=== PATIENT | female | born 1995 ===

== ENCOUNTER 2019-07-12 16:19 | Inpatient (IN) | payer MEDICAID ==
[~2019-07-12] VITALS: Ht 160 cm; Wt 63.5 kg
[2019-07-12] MEDS ORDERED: diphenhydrAMINE 25mg capsule PO PRN (21:30)
[2019-07-12] MEDS ORDERED: haloperidol 5mg tablet PO PRN (21:30)
[2019-07-12] MEDS ORDERED: traZODone 50mg tablet PO PRN (21:30)
[2019-07-12] MEDS ORDERED: LORazepam 1 MG tablet PO PRN (21:30)
[2019-07-12] MEDS ORDERED: acetaminophen 325mg tablet PO PRN ×2 (21:30)
[2019-07-12] MEDS ORDERED: mag hydrox/Alum hydrox/simeth 30ml oral suspension PO PRN (21:50)
[2019-07-12] MEDS ORDERED: LORazepam 0.5 MG tablet PO PRN (21:50)
[2019-07-12] MEDS ORDERED: magnesium hydroxide 30ml (MOM) UD suspension PO PRN (21:50)
--- NOTE | 2019-07-12 22:45 | NUR ---
Admit Note: Pt arrived on floor at 2124. Accompanied by desk sergeant and Ta scott. Changed into hospital scrubs 2 RN skin check complete. Bottoms of both feet red several blisters covered by band aids. Pt came from [facility] she was brought to [facility] by police. She was siting by the side of the road near traffic at a busy intersection She told police that voices told her to sit there. After talking to the pt for an hour they were unable to convince her to move so they brought her to the ER on a 5150 for danger to self. Pt is a very poor historian not clear if she is refusing to answer or is unable to answer. pleasant and cooperative.
[2019-07-13 07:52] LABS: CHOLESTEROL 94 MG/DL (0-200); HDL CHOLESTEROL 46 MG/DL (35-60); LDL CHOLESTEROL 40 MG/DL (50-100); TRIGLYCERIDES 34 MG/DL (20-135)
[2019-07-13 08:32] LABS: HEMOGLOBIN A1C 4.3 % (4.5-6.2)
[2019-07-13] MEDS: LORazepam 1 MG tablet PO SCH (18:19)
--- NOTE | 2019-07-13 18:44 | NUR ---
Nursing Progress Note Legal hold: 5150 Client on involuntary status for DTS/GD Report received from nurse, SABRINA Herrera with use of SBAR Why they are here: P after that received multiple calls that a female was seated on a busy hwy intersection on the inside of a curve, with her back to the oncoming traffic. Patient refused to move and stated that a voice told her to sit there. The police officers talked with her for 60 minutes. She said the voice did not permit her to move. Assessment What has happened this shift: Pt isolated in her room. She refused all three meals and drank only when prompted to drink. At 1700 she was lying on her bed in a near catatonic state. She appeared stiff. Per consult with BOOGIE Banks pt was given Ativan 2mg PO. Pt provided education and slightly opened her lips and teeth and took the medicine. S/I, H/I: Unk A/VH: Appears to be RIS Sleep: She did not sleep ADL's: clean green scrubs Group attendance: N/A Were meds taken: PRN Any med S/E: N/A Mental Status Exam Appearance: Green [facility] scrubs Eye contact: Poor Behavior: Poverty of speech Speech: Does not engage in conversation Mood: Depressed Affect: Flat Thought process: paranoid Thought Content: unk Cognition: Alert Insight: Poor Judgment: Unk Interventions PRN's used: Ativan 2mg Therapeutic interventions: Encouraged and prompted pt to eat and drink; provided therapeutic communication, assisted pt in sitting up; consulted with BOOGIE, q15min safety checks Restraints/seclusion/emergency medication: N/A Justification of Continued Inpatient Treatment: Patient is unable to formulate a realistic plan for food, care home or clothing at this time.
[2019-07-13 20:28] VITALS: BP 108/70
[2019-07-13] MEDS ORDERED: LORazepam 1 MG tablet PO SCH ×2 (21:00)
--- NOTE | 2019-07-14 00:06 | NUR ---
Nursing Progress Note Legal hold: 5150 Client on involuntary status for DTS/GD Report received from nurse, SABRINA Duffy with use of SBAR Why they are here: CHP after that received multiple calls that a female was seated on a busy hwy intersection on the inside of a curve, with her back to the oncoming traffic. Patient refused to move and stated that a voice told her to sit there. The police officers talked with her for 60 minutes. She said the voice did not permit her to move. Assessment What has happened this shift: Pt was sitting in her bed. When approached by this RN pt appeared to be alert, states that she had something in her mouth and wanted to spit it out. After that pt would not engage or respond to any of the questions being asked. While checking on pt, she had been eating part of her dinner and she was a little more responsive. Asked how she was doing and states Im good. Pt was observed responding to internal stimuli. She was observed a couple times talking to herself, and laughing pretty loudly. Denies any A/VH but when asked who she was talking to she states Jehovah. She also denies any depression or anxiety. Pt is much more alert and cooperative at this time. She was up in the unit and requested a snack a couple of times, and also asking questions to staff about the unit. Offered pt medication to aid with sleep but she refused. Will continue to monitor. S/I, H/I: Denies A/VH: Denies but appears to be responding to internal stimuli Sleep: Pt had trouble falling asleep, See sleep assessment for total hours ADL's: Independent Group attendance: N/A Were meds taken: No Any med S/E: N/A Mental Status Exam Appearance: Green hospital scrubs, hair is dishevelled Eye contact: Poor Behavior: Cooperative, appears paranoid Speech: Normal rate and rhythm, volume is elevated Mood: "I'm good." Affect: Euthymic Thought process: Constricted Thought Content: Snacks, having multiple conversations with unknown people Cognition: Alert and oriented X3 Insight: Poor Judgment: Poor Interventions PRN's used: None Therapeutic interventions: Encouraged and prompted pt to eat and drink; provided therapeutic communication, assisted pt in sitting up; consulted with PA, q15min safety checks Restraints/seclusion/emergency medication: N/A Justification of Continued Inpatient Treatment: Patient is unable to formulate a realistic plan for food, mcc or clothing at this time.
[2019-07-14] MEDS: LORazepam 1 MG tablet PO SCH ×3 (07:32→20:29)
[2019-07-14 08:00] VITALS: BP 106/65
--- NOTE | 2019-07-14 08:44 | NUR ---
PSYCHOSOCIAL ASSESSMENT Met with Verito to complete psychosocial assessment on 07/13/19. Verito is a 24 y/o single female who was placed on 5150 by police due to sitting on the side of a busy road and reported that voices told her to. She reported she had hitch hiked and walked from [place] to [facility] where she was located by police, "I wanted to get away". Verito was slow to respond to questions and appeared to be attending to internal stimuli. She reported she does hear voices that are command in nature. She denied any suicidal or homicidal ideation, intention, or plan. She denied any history of suicide attempts. She reported she has been diagnosed with Schizophrenia. She reported a history of hospitalizations, however, could not recall when and where she was hospitalized. Her memory was poor. She appeared sunburned and weathered with long hair. She maintained decent eye contact.She was cooperative with typewriter ribbon winder and answered questions. She was oriented to person, place, and time. She was vague on why she was hitchhiking and walking from [place], other than stating, "I was walking, trying to get away from the area" She also mentioned she believes in [employer] and that she recently has started studying [employer]. Verito reported she typically resides with her mom, Margot Perla, in [place]. She reported she does not currently work or have any source of income. She notes she spent a little time at [facility] a couple years ago. She reported she would like to return to her mother's home, however, she does not know her phone number. She has [facility] currently. She reported she has not been taking any medications or connected with a mental health provider. CRAIG Brand Addendum: 07/14/19 at 0846 by Nallely SCHWARZ Amended: Links added. Addendum: 07/14/19 at 0857 by Nallely Corona SS Verito gomez [facility], not [facility] Head
--- NOTE | 2019-07-14 11:43 | NUR ---
Nursing Progress Note Legal hold: 5150 Client on involuntary status for DTS/GD Report received from nurse, SABRINA Herrera with use of SBAR Why they are here: P after that received multiple calls that a female was seated on a busy hwy intersection on the inside of a curve, with her back to the oncoming traffic. Patient refused to move and stated that a voice told her to sit there. The police officers talked with her for 60 minutes. She said the voice did not permit her to move. Assessment What has happened this shift: Patient was sitting at edge of bed at change of shift. She took a shower and changed in to clean scrubs. She is pleasant and cooperative with care and takes her medications as ordered and directed. She eats her meals in her room. She mostly isolates in the morning and asks for some band aids for her feet. She denies SI, HI, A/VH. S/I, H/I: denies A/VH: denies, but appears to be responding to internal stimuli Sleep: up the majority of the shift ADL's: clean green scrubs, hair is washed and brushed loose on her back Group attendance: N/A Were meds taken: yes Any med S/E: N/A Mental Status Exam Appearance: Green hospital scrubs, freshly showered Eye contact: Poor Behavior: guarded Speech: minimal Mood: Depressed Affect: Flat Thought process: paranoid Thought Content: unknown Cognition: Alert Insight: Poor Judgment: poor Interventions PRN's used: none Therapeutic interventions: Encouraged and prompted pt to eat and drink; provided therapeutic communication, assisted pt in sitting up; consulted with BOOGIE, q15min safety checks Restraints/seclusion/emergency medication: N/A Justification of Continued Inpatient Treatment: Patient is unable to formulate a realistic plan for food, detention or clothing at this time.
--- NOTE | 2019-07-14 12:30 | NUR ---
SABRINA assumed care of patient Addendum: 07/14/19 at 1543 by Hank Bello RN Pt. was social in the afternoon, overheard talking with other patients in a loud voice. Addendum: 07/14/19 at 1730 by Hank Bello RN Pt. went outside with other patients and initiated ball throwing game. Pt. appears to be in a jovial mood.
[2019-07-14 19:47] VITALS: BP 108/56
[2019-07-14] MEDS: OLANZAPINE 5 MG TABLET PO SCH (20:30)
--- NOTE | 2019-07-14 23:42 | NUR ---
Nursing Progress Note: Legal hold: 5150 for GD (HOLD ENDS 07/14 @ 7666) Client on involuntary status for DTS/GD Report received from nurse, SABRINA Duffy with use of SBAR Why they are here: CHP after that received multiple calls that a female was seated on a busy hwy intersection on the inside of a curve, with her back to the oncoming traffic. Patient refused to move and stated that a voice told her to sit there. The police officers talked with her for 60 minutes. She said the voice did not permit her to move. Assessment What has happened this shift: Pt sleeping at change of shift, but easily roused. Isolated to room entire shift, but did enjoy a snack. Pt endorses depression "it goes up and down, and right now it feels low" and +AH "it is like background noise currently, but usually it tells me to do things." Pt would not elaborate on commands voices give her. Pt states she has good support from her mother, but no other friends she can count on. She states she doesn't want a job but is "feeling better" and just needing to "catch up on sleep". Pt is cooperative and pleasant during assessment but seems somewhat guarded aeb by frequent shrugging, laughing off responses, and shifting eye contact. Pt unable to state exactly why she ended up in [place] but admits to having been hospitalized for her mental health in the past. "I don't know what caused this problem now." Pt compliant with HS medications and went to sleep shortly after administration. S/I, H/I: Denies both A/VH: +AH "background noise"; Denies VH Sleep: See Sleep Assessment ADL's: Independent Group attendance: N/A Were meds taken: yes Any med S/E: N/A Mental Status Exam Appearance: Clean in green unit scrubs, nonskid socks, with hair in ponytail. Pt appears slightly sunburned. Eye contact: Intermittent Behavior: Guarded, Cooperative, Isolated to room Speech: Clear Mood: "Better", Depression "low" Affect: Blunted with brightening Thought process: Linear Thought Content: wanting to catch up on sleep Cognition: A&Ox3 (off for circumstance) Insight: Poor Judgment: poor Interventions PRN's used: None Therapeutic interventions: Encouraged and prompted pt to eat and drink at snack; provided therapeutic communication, q15min safety checks, medication administration Restraints/seclusion/emergency medication: N/A Justification of Continued Inpatient Treatment: Patient is unable to formulate a realistic plan for food, correction or clothing at this time Cooperative with care but doesn't know why she was admitted; seems to lack insight into her mental health.
[2019-07-15] MEDS: LORazepam 1 MG tablet PO SCH ×3 (08:16→20:52)
[2019-07-15 08:26] VITALS: BP 103/73
--- NOTE | 2019-07-15 15:52 | NUR ---
DISCHARGE PLANNING Verito reported she would like to return to her mother's home in [place]. She reported she would sign voluntary for one night to wait for transportation. Arranged for transportation through [employer]. Transportation will pick Verito up at noon tomorrow. Attempted to arrange follow up appt and Verito has to call herself to re-start services. Provided her with the phone number and asked her to call. Later she reported she called and someone is going to call her back to complete a pre-screening. CRAIG Brand
--- NOTE | 2019-07-15 16:41 | NUR ---
Nursing Progress Note: Legal hold: 5150 for GD (HOLD ENDS 07/14 @ 5555) Client on involuntary status for DTS/GD Report received from nurse, Araceli RN with use of SBAR Why they are here: CHP received multiple calls that a female was seated on a busy hwy intersection on the inside of a curve, with her back to the oncoming traffic. Patient refused to move and stated that the voice of "Sadiq" told her to sit there. The police officers talked with her for 60 minutes. She said the voice did not permit her to move. Assessment What has happened this shift: Pt sleeping at change of shift, but easily roused. walked around the unit several times today and did enjoy a snack. Pt states depression "it goes up and down, and right now it feels low" and +AH "it is like background noise currently, but usually it tells me to do things." Pt would not elaborate on commands voices give her. Pt states she has good support from her mother, but no other friends she can count on. She states she doesn't want a job but is "feeling better" and just needing to "catch up on sleep". Pt is cooperative and pleasant during assessment but seems somewhat guarded, evidenced by shifting eye contact and quick responses to questions. Pt unable to state exactly why she ended up in [place] but admits to having been hospitalized for her mental health in the past. "I don't know what caused this problem now." Pt compliant with medications. S/I, H/I: Denies both A/VH: +AH "background noise"; Denies VH Sleep: See Sleep Assessment ADL's: Independent Group attendance: N/A Were meds taken: yes Any med S/E: N/A Mental Status Exam Appearance: Clean in green unit scrubs, nonskid socks, with hair in ponytail. Pt appears slightly sunburned. Eye contact: Intermittent Behavior: Guarded, Cooperative Speech: Clear Mood: "Better" Affect: Blunted with brightening Thought process: Linear Thought Content: wanting to catch up on sleep Cognition: A&Ox3 Insight: Poor Judgment: poor Interventions PRN's used: None Therapeutic interventions: Encouraged and prompted pt to eat and drink at snack; provided therapeutic communication, q15min safety checks, medication administration Restraints/seclusion/emergency medication: N/A Justification of Continued Inpatient Treatment: Patient is unable to formulate a realistic plan for food, group home or clothing at this time Cooperative with care but doesn't know why she was admitted; seems to lack insight into her mental health.
[2019-07-15 20:00] VITALS: BP 106/57
[2019-07-15] MEDS: OLANZAPINE 5 MG TABLET PO SCH (20:52)
--- NOTE | 2019-07-15 22:44 | NUR ---
Nursing Progress Note: Legal hold: Voluntary for GD/DTS Report received from SABRINA Buckner with use of SBAR Why they are here: CHP after that received multiple calls that a female was seated on a busy hwy intersection on the inside of a curve, with her back to the oncoming traffic. Patient refused to move and stated that a voice told her to sit there. The police officers talked with her for 60 minutes. She said the voice did not permit her to move. Assessment What has happened this shift: Pt watching TV majority of shift in the group room, and denied all signs and symptoms except +AH which "is much better, they are quieter now. I think I'll be okay." Pt states she is leaving tomorrow but unsure where she is going, this RN update pt on discharge plan and asked if she'd like to call her mother. Pt stated "Yeah, I could try a couple numbers to give her a heads up." Pt successful in making contact and informed her mother that she would be leaving at noon per the plan set up via [facility]. RN reinforced how much better pt is doing since taking her medications, and pt agreed stating "Yeah. Much better." Encouraged to maintain medications upon discharge and pt stated, "Yeah, I think I can." Pt attended snack and interacted with a couple peers, speaking very loudly. She attended snack, was compliant with medications and read a book before turning retiring to bed. S/I, H/I: Denies both A/VH: +AH "quieter"; Denies VH Sleep: See Sleep Assessment ADL's: Independent Group attendance: N/A Were meds taken: Yes Any med S/E: None reported nor observed Mental Status Exam Appearance: Clean in green unit scrubs, nonskid socks, with hair in ponytail. Pt appears slightly sunburned. Eye contact: Good Behavior: Cooperative, Reading, watching TV, talked to mother, engaging with a couple peers Speech: Clear, loud Mood: "Much better" Affect: Blunted with brightening Thought process: Linear Thought Content: looking forward to being discharged, staying on medications Cognition: A&Ox4 Insight: Fair Judgment: Fair Interventions PRN's used: None Therapeutic interventions: Encouraged and prompted pt to eat and drink at snack; provided therapeutic communication, q15min safety checks, medication administration Restraints/seclusion/emergency medication: N/A Justification of Continued Inpatient Treatment: Pt to be discharged to her mother's home in [place] in the afternoon, transportation arranged by [facility].
[2019-07-16 07:15] VITALS: BP 117/75
[2019-07-16] MEDS: LORazepam 1 MG tablet PO SCH ×2 (08:00→08:14)
[2019-07-16] MEDS ORDERED: OLAN5TAB26 PO (10:41)
--- NOTE | 2019-07-16 12:50 | NUR ---
Patient discharged from the facility ambulating self, no distress observed. She is accompanied by unit tech. Patient currently denies SI, HI and VH. Reports that her AH are "much quieter and are no longer telling me to do things. It is just background noise". She does not appear to be responding to internal stimuli. All items inventoried and in patient's possession at time of discharge. Patient is being discharged to [facility] in to the care of her mother. She is a non-smoker. Patient refused AM medication as she stated "I am way too tired to take that and i have to leave today".
== END 2019-07-16 12:50 | disposition short-term general hospital (02) | DRG 750 ==
LOC: ADULT MH 21:08
PROVIDERS: ADMIT Psychiatry & Neurology Psychiatry; ATTEND Psychiatry & Neurology Psychiatry
DX: F25.0 Schizoaffective disorder, bipolar type (principal); Z87.891 Personal history of nicotine dependence
CPT/HCPCS: 36415; 80061; 83036; 84443; 87081